=== PATIENT | female | born 2005 | race African-American/Black ===

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

== ENCOUNTER 2025-03-29 13:41 | Emergency (ER) | payer MEDICAID ==
[~2025-03-29] VITALS: Ht 165.1 cm; Wt 59.0 kg
[~2025-03-29 13:41] MED LIST: NITR-87 MT
[2025-03-29 13:54] VITALS: O2SAT 100
[2025-03-29 14:25] LABS: CLARITY URINE CLEAR (CLEAR); COLOR URINE YELLOW (YELLOW); GLUCOSE URINE NEGATIVE (NEGATIVE); KETONES URINE NEGATIVE (NEGATIVE); LEUKOCYTE ESTERASE URINE NEGATIVE (NEGATIVE); NITRITE URINE NEGATIVE (NEGATIVE); OCCULT BLOOD URINE 2+ (NEGATIVE); PH URINE 6.0 (4.5-8.0); PROTEIN URINE NEGATIVE (NEGATIVE); SPECIFIC GRAVITY URINE 1.033 (1.005-1.030); UROBILINOGEN URINE 1.0 E.U./dL (0.2-1.0)
[2025-03-29 14:38] LABS: BACTERIA URINE 3+; SQUAMOUS EPITHELIAL CELL URINE 1+ /lpf (RARE/1+); YEAST URINE NONE SEEN
[2025-03-29 14:57] LABS: BASOPHILS % 0.3 % (0.0-2.0); EOSINOPHILS % 1.5 % (0.0-5.0); HEMATOCRIT. 35.1 % (36.0-48.0); HEMOGLOBIN. 11.5 g/dL (12.0-16.0); LYMPHOCYTES % 51.7 % (20.0-50.0); MEAN PLATELET VOLUME 8.3 fl (7.4-10.4); MONOCYTES % 12.1 % (2.0-8.0); NEUTROPHILS % 34.4 % (40.0-76.0); PLATELET 257 x1000/uL (130-400); RED BLOOD CELL COUNT 3.96 mill/uL (4.2-5.4); RED CELL DISTRIBUTION WIDTH 17.0 % (11.6-14.6)
[2025-03-29 15:11] LABS: CREATININE 0.8 mg/dL (0.6-1.0); UREA NITROGEN BLOOD 11 mg/dL (9-23)
[2025-03-29 15:13] LABS: ASPARTATE AMINOTRANSFERASE 31 IU/L (<34); BILIRUBIN DIRECT 0.2 mg/dL (<=3.0); BILIRUBIN TOTAL 0.5 mg/dL (0.1-1.0); PROTEIN TOTAL 6.7 g/dL (6.0-8.3)
[2025-03-29 15:15] LABS: HCG SCREEN NEGATIVE
[2025-03-29] MEDS: KETOROLAC 15MG/ML VIAL IM ONE (17:33)
[2025-03-29] MEDS ORDERED: BO1 TP (19:14)
[2025-03-29] MEDS ORDERED: HYDR-4001 MT (19:14)
[2025-03-29] MEDS ORDERED: DOXY150T23 MT (19:14)
[2025-03-29] MEDS ORDERED: IBUP-2029 MT (19:14)
[2025-03-29] MEDS: CEFTRIAXONE SODIUM 500MG VIAL IM ONE (19:28)
[2025-03-29 19:30] VITALS: BP 112/72; PULSE 74; RESP 16; TEMP 37; O2SAT 98
[2025-03-31 06:10] LABS: HSV TYPE 2 SPECIFIC AB IGG Reactive (Non Reactive)
[2025-04-01 04:07] LABS: CHLAMYDIA TRACHOMATIS NAA Positive (Negative); NEISSERIA GONORRHOEAE NAA Positive (Negative)
== END 2025-03-29 19:37 | disposition home or self-care (01) ==
LOC: ER 13:41
DX: A63.0 Anogenital (venereal) warts (principal); F20.9 Schizophrenia, unspecified; Z59.00 Homelessness unspecified
CPT/HCPCS: 86695; 86696; 87491; 87591; 80076; 80048; 81003; 81025; 84703; 85025; 86592; 86593; 87210; 36415; 96372; 99284; J0696; J1885; Z7610 ×3